=== PATIENT | female | born 1975 | race Caucasian/White ===

== ENCOUNTER → 2022-10-30 | Outpatient (REF) | LOC: M LAB 10:23 | PROVIDERS: ATTEND Nurse Practitioner Adult Health | DX: Z02.1 Encounter for pre-employment examination (principal) ==

== ENCOUNTER 2022-12-14 20:15 | Emergency (ER) | payer MEDICAID, OTHER ==
[~2022-12-14] VITALS: Ht 152.4 cm; Wt 75.5 kg
[2022-12-14 22:02] LABS: BASO % 0.4 % (0.0-1.0); EOS % 0.3 % (0.0-3.0); HEMATOCRIT 39.7 % (36.0-47.0); LYMPH # 1.6 10^3/uL (1.5-5.0); LYMPH % 21.2 % (24.0-44.0); MEAN CORPUSCULAR HEMOGLOBIN 30.2 pg (27.0-33.0); MEAN CORPUSCULAR HGB CONC 32.7 g/dl (32.0-36.5); MEAN CORPUSCULAR VOLUME 92.1 fl (80.0-96.0); MONO # 0.4 10^3/uL (0.0-0.8); MONO % 5.3 % (2.0-8.0); NEUTROPHILS # 5.6 10^3/uL (1.5-8.5); NEUTROPHILS % 72.4 % (36.0-66.0); PLATELET COUNT, AUTOMATED 318 10^3/uL (150-450); RED BLOOD COUNT 4.31 10^6/uL (4.00-5.40); WHITE BLOOD COUNT 7.7 10^3/uL (4.0-10.0)
[2022-12-14 22:24] LABS: ALKALINE PHOSPHATASE 80 U/L (46-116); ALT/SGPT 19 U/L (7.0-40); AST/SGOT 10 U/L (<34); BILIRUBIN,TOTAL 0.5 MG/DL (0.3-1.2); BLOOD UREA NITROGEN 13 MG/DL (9-23); CALCIUM LEVEL 9.5 MG/DL (8.5-10.1); CARBON DIOXIDE LEVEL 27 MMOL/L (20-31); CHLORIDE LEVEL 109 MMOL/L (98-107); CREATININE FOR GFR 0.67 MG/DL (0.55-1.30); GLOMERULAR FILTRATION RATE > 60.0 (>58); GLUCOSE, FASTING 96 MG/DL (60-100); SODIUM LEVEL 143 MMOL/L (136-145); TOTAL PROTEIN 6.8 G/DL (5.7-8.2)
[2022-12-15] MEDS ORDERED: METOCLOPRAMIDE INJ 10MG/2ML VIAL IV ONE (04:45)
[2022-12-15] MEDS ORDERED: KETOROLAC 30 MG/ML 1ML VIAL IM ONE (04:45)
[2022-12-15] MEDS ORDERED: NS 1,000 ML IV ONE (04:45)
[2022-12-15] MEDS ORDERED: diphenhydrAMINE 50MG/ML VIAL IV ONE (04:45)
[2022-12-15] MEDS ORDERED: REGL10TA6 PO (07:35)
[2022-12-15 08:05] VITALS: BP 121/74; TEMP 97.5; O2SAT 98
== END 2022-12-15 08:14 | disposition home or self-care (01) ==
LOC: M ED 20:15
DX: R51.9 Headache, unspecified (principal); E11.9 Type 2 diabetes mellitus without complications; I10 Essential (primary) hypertension; Z98.84 Bariatric surgery status; Z88.0 Allergy status to penicillin; Z88.2 Allergy status to sulfonamides; Z91.048 Other nonmedicinal substance allergy status; Z79.899 Other long term (current) drug therapy
CPT/HCPCS: 70450; 80053; 85025; 96361; 96372; 96374; 99283; J1200; J1885; J2765

== ENCOUNTER → 2022-12-14 | Outpatient (CLI) | payer MEDICAID, OTHER ==
[~2022-12-14] MED LIST: REGL10TA6 PO
[2022-12-14 10:33] LABS: BASO # 0.1 10^3/uL (0.0-0.2); BASO % 0.7 % (0.0-1.0); EOS # 0.1 10^3/uL (0.0-0.5); EOS % 1.8 % (0.0-3.0); HEMATOCRIT 40.6 % (36.0-47.0); LYMPH # 2.9 10^3/uL (1.5-5.0); LYMPH % 42.8 % (24.0-44.0); MEAN CORPUSCULAR HEMOGLOBIN 30.4 pg (27.0-33.0); MEAN CORPUSCULAR VOLUME 94.9 fl (80.0-96.0); MONO # 0.4 10^3/uL (0.0-0.8); MONO % 6.2 % (2.0-8.0); NEUTROPHILS # 3.3 10^3/uL (1.5-8.5); NEUTROPHILS % 48.2 % (36.0-66.0); PLATELET COUNT, AUTOMATED 307 10^3/uL (150-450); RED BLOOD COUNT 4.28 10^6/uL (4.00-5.40); WHITE BLOOD COUNT 6.8 10^3/uL (4.0-10.0)
[2022-12-14 10:49] LABS: URIC ACID 5.6 MG/DL (3.1-7.8)
[2022-12-14 10:50] LABS: C REACTIVE PROTEIN QUANTITATIV < 0.40 MG/DL (<1.0)
[2022-12-14 10:52] LABS: RHEUMATOID FACTOR QUANT < 3.5 IU/ML (<14)
[2022-12-14 10:57] LABS: ALBUMIN 3.9 G/DL (3.2-5.2); ALKALINE PHOSPHATASE 73 U/L (46-116); ALT/SGPT 20 U/L (7.0-40); AST/SGOT < 8 U/L (<34); BILIRUBIN,TOTAL 0.5 MG/DL (0.3-1.2); BLOOD UREA NITROGEN 18 MG/DL (9-23); CALCIUM LEVEL 8.9 MG/DL (8.5-10.1); CARBON DIOXIDE LEVEL 29 MMOL/L (20-31); CHLORIDE LEVEL 106 MMOL/L (98-107); CHOLESTEROL LEVEL 169 MG/DL (<200); CHOLESTEROL RISK RATIO 2.84 (<5); CREATININE FOR GFR 0.67 MG/DL (0.55-1.30); FREE T4 1.13 NG/DL (0.89-1.76); GLOMERULAR FILTRATION RATE > 60.0 (>58); GLUCOSE, FASTING 85 MG/DL (60-100); HDL CHOLESTEROL 59.4 MG/DL (>40); LDL CHOLESTEROL 91.2 MG/DL (<100); NON-HDL-C 109.6 MG/DL; POTASSIUM SERUM 4.2 MMOL/L (3.5-5.1); SODIUM LEVEL 142 MMOL/L (136-145); THYROID STIMULATING HORMONE 0.238 uIU/ML (0.55-4.78); TOTAL PROTEIN 6.8 G/DL (5.7-8.2); TRIGLYCERIDES LEVEL 92 MG/DL (<150)
[2022-12-14 11:01] LABS: HEPATITIS B SURFACE ANTIBODY NEGATIVE (POSITIVE)
[2022-12-14 11:33] LABS: HEPATITIS B CORE ANTIBODY IGM NEGATIVE (NEGATIVE); HEPATITIS C VIRUS ABY INDEX 0.11 INDEX (<0.8)
[2022-12-14 11:39] LABS: ERYTHROCYTE SEDIMENTATION RATE 13 mm/hr (0-20)
[2022-12-18 16:08] LABS: ANA (HEP2) Positive (.); CYCLIC CITRULLINATED PEPTIDE < 1 units (0-19); HEPATITIS B CORE ANTIBODY IGG Negative (Negative)
== END ==
LOC: M WUC 08:09
PROVIDERS: ATTEND Family Medicine
DX: L40.50 Arthropathic psoriasis, unspecified (principal); E03.9 Hypothyroidism, unspecified; E11.9 Type 2 diabetes mellitus without complications; E66.9 Obesity, unspecified

== ENCOUNTER 2023-04-02 08:59 | Day surgery (SDC) | payer OTHER ==
[~2023-04-02] VITALS: Ht 152.4 cm; Wt 70.9 kg
[~2023-04-02 08:59] MED LIST changes: +DICY20TA20 PO; +FLUO1TAB3 PO; +FOLI1TAB11 PO; +HYDR200T46 PO; +LEVO100T5 PO; +METH2.5T48 PO; +NS 1,000 ML IV ONE; +PREG100C2 PO
[2023-04-02] MEDS ORDERED: LIDOCAINE 2% 100MG/5ML SDV (FOR ANES.) As Ordered ONE (09:58)
[2023-04-02] MEDS ORDERED: fentaNYL 100 MCG/2 ML INJECTION As Ordered ONE (09:58)
[2023-04-02 10:32] VITALS: TEMP 97.1
[2023-04-02 10:55] VITALS: BP 150/85; O2SAT 100
== END 2023-04-02 11:01 | disposition home or self-care (01) ==
LOC: M OPP 08:59
PROVIDERS: ATTEND Internal Medicine Gastroenterology
DX: K57.30 Diverticulosis of large intestine without perforation or abscess without bleeding (principal); K63.5 Polyp of colon; R19.4 Change in bowel habit; K22.89 Other specified disease of esophagus; K22.70 Barrett's esophagus without dysplasia; Z98.890 Other specified postprocedural states; Z87.891 Personal history of nicotine dependence; Z79.2 Long term (current) use of antibiotics; Z79.631 Long term (current) use of antimetabolite agent; Z79.890 Hormone replacement therapy; Z79.891 Long term (current) use of opiate analgesic; Z79.899 Other long term (current) drug therapy; Z88.0 Allergy status to penicillin; Z88.2 Allergy status to sulfonamides; Z88.8 Allergy status to other drugs, medicaments and biological substances; Z91.040 Latex allergy status
CPT/HCPCS: 43239; 45380; 88305; J3010

== ENCOUNTER → 2023-05-09 | Outpatient (REF) | payer MEDICAID, OTHER ==
[~2023-05-09] MED LIST changes: -NS 1,000 ML IV ONE
== END ==
LOC: M SFHCRHEU 10:02
PROVIDERS: ATTEND Internal Medicine
DX: L40.50 Arthropathic psoriasis, unspecified (principal)

== ENCOUNTER → 2023-07-08 | Outpatient (CLI) | payer MEDICAID, OTHER | LOC: M WUC 10:10 | PROVIDERS: ATTEND Family Medicine | DX: M79.644 Pain in right finger(s) (principal) ==

== ENCOUNTER 2023-09-22 15:03 | Emergency (ER) | payer OTHER, MEDICAID ==
[~2023-09-22] VITALS: Ht 152.4 cm; Wt 72.3 kg
[2023-09-22] MEDS: LIDOCAINE 1% MDV 20ML VIAL SC ONE (16:40)
[2023-09-22] MEDS ORDERED: CLEO300C2 PO (17:02)
[2023-09-22 17:05] VITALS: BP 137/84; TEMP 97.2; O2SAT 98
== END 2023-09-22 17:10 | disposition home or self-care (01) ==
LOC: M ED 15:03
DX: L72.3 Sebaceous cyst (principal); E03.9 Hypothyroidism, unspecified; Z79.2 Long term (current) use of antibiotics; Z79.899 Other long term (current) drug therapy; Z88.0 Allergy status to penicillin; Z88.2 Allergy status to sulfonamides; Z91.040 Latex allergy status; Z91.048 Other nonmedicinal substance allergy status